=== PATIENT | female | born 1940 | race Caucasian/White ===

== ENCOUNTER 2018-11-09 22:33 | Observation (INO) | payer BC, MEDICARE ==
[~2018-11-09] VITALS: Ht 162.6 cm; Wt 52.0 kg
--- NOTE | 2018-11-09 22:46 | NUR ---
[facility] DIVERTED FROM [facility] WITH C/O SUDDEN ONSET STERAL CP DURING DINNER,+ N/V AND SOB THAT STARTED APPROX 2100 TODAY, DENIES CARDIAC H/X, EMT ADMINISTERRED 4 MG NITRO SL WITH RELIEF OF PT'S CP, PT ALSO RECIEVED 4 MG ZOFRAN RAILWAY HEAD TENDER. 12 LEAD EKG-SR, HR-79, B/P-161/71, 99% ON 2l N/C. MONITORS APPLIED, SIDERAILS UP X2, CALL LIGHT WITHIN REACH
[2018-11-09] MEDS ORDERED: PRED1TAB PO (22:56)
[2018-11-09] MEDS ORDERED: ASPI-515 PO (22:56)
[2018-11-09] MEDS ORDERED: FLUT9.9S NAS (22:56)
[2018-11-09] MEDS ORDERED: FLUT10.6 INH (22:56)
[2018-11-09] MEDS ORDERED: CALC-112 PO (22:56)
[2018-11-09 23:11] LABS: BASOPHILS # (AUTO) 0.01 x10^3/uL (0-0.1); BASOPHILS % (AUTO) 0 % (0-1); EOSINOPHILS # (AUTO) 0.55 x10^3/uL (0-0.4); EOSINOPHILS % (AUTO) 7 % (1-7); LYMPHOCYTES # (AUTO) 1.07 x10^3/uL (1-3.4); LYMPHOCYTES % (AUTO) 13 % (22-44); MD NO; MEAN CORPUSCULAR HEMOGLOBIN 30.8 pg (27.0-34.8); MEAN CORPUSCULAR HGB CONC 33.1 g/dL (32.4-35.8); MEAN PLATELET VOLUME 8.2 fL (7.4-10.4); MONOCYTES # (AUTO) 0.46 x10^3/uL (0.2-0.8); MONOCYTES % (AUTO) 5 % (2-9); NEUTROPHILS # (AUTO) 6.41 x10^3/uL (1.8-6.8); NEUTROPHILS % (AUTO) 75 % (42-75); PLATELET COUNT 312 x10^3/uL (130-400); RED BLOOD COUNT 4.25 x10^6/uL (3.82-5.3); RED CELL DISTRIBUTION WIDTH 14.3 % (9.6-15.2)
[2018-11-09 23:22] LABS: ALANINE AMINOTRANSFERASE 33 U/L (12-78); ALBUMIN 3.4 g/dL (3.4-5.0); ANION GAP 10 mmol/L (5-15); CALCIUM 8.9 mg/dL (8.5-10.1); CHLORIDE 109 mmol/L (98-107); CREATININE 0.64 mg/dL (0.55-1.02)
[2018-11-09 23:26] LABS: ALKALINE PHOSPHATASE 84 U/L (45-117); BILIRUBIN,TOTAL 0.5 mg/dL (0.2-1.0); TROPONIN I < 0.015 ng/mL (0.000-0.045)
--- NOTE | 2018-11-10 00:33 | NUR ---
PT RESTING ON GURNEY, DENIES PAIN, NAUSEA OR NEEDS AT THIS TIME, FAMILY AT BEDSIDE, MONITORS IN PLACE, CALL LIGHT WITHIN REACH. AWAITING CT RESULT
--- NOTE | 2018-11-10 01:13 | NUR ---
EMELY RN: DR OLSON HAS UPDATED PATIENT. VS STABLE. CALL LIGHT IN PLACE. WILL CONTINUE TO MONITOR WHILE PRIMARY RN IS ON BREAK.
[2018-11-10] MEDS ORDERED: SODIUM CHLORIDE 0.9% 1,000 ML IV SCH (02:31)
[2018-11-10 02:50] VITALS: BP 138/73
[2018-11-10] MEDS: HEPARIN 5,000 UNITS/ML, 1ML SQ SCH ×2 (02:54→11:00)
[2018-11-10] MEDS ORDERED: LATA7.5D EACHEYE (02:58)
[2018-11-10] MEDS ORDERED: ONDANSETRON 2MG/ML, 2ML IVPush PRN (03:00)
[2018-11-10 03:52] LABS: TROPONIN I < 0.015 ng/mL (0.000-0.045)
[2018-11-10 04:23] VITALS: BP 138/73
[2018-11-10] MEDS ORDERED: LATANOPROST OPHTH 0.005%, 2.5ML EACHEYE SCH (05:00)
[2018-11-10] MEDS ORDERED: OMNIPAQUE 350 MG/ML, 100ML BOTTLE ONE (05:36)
[2018-11-10] MEDS ORDERED: ASPIRIN 325 MG TABLET EC PO SCH (06:00)
[2018-11-10 08:02] VITALS: BP 135/80
[2018-11-10] MEDS ORDERED: REGADENOSON 0.4 MG/5 ML SYRINGE ONE (08:44)
[2018-11-10 09:12] LABS: TROPONIN I < 0.015 ng/mL (0.000-0.045)
[2018-11-10 13:04] VITALS: BP 128/77
== END 2018-11-10 15:20 | disposition home or self-care (01) ==
LOC: ED 23:24 → INTOOBSV 11-10 01:23 → EDIP 11-10 01:23 → 5SO 11-10 02:27 → DCLOUNGE 11-10 15:13
PROVIDERS: ADMIT Family Medicine; ATTEND Family Medicine
DX: R07.89 Other chest pain (principal); M35.3 Polymyalgia rheumatica; Z79.82 Long term (current) use of aspirin; Z79.899 Other long term (current) drug therapy; Z88.0 Allergy status to penicillin; Z88.8 Allergy status to other drugs, medicaments and biological substances; Z88.4 Allergy status to anesthetic agent
CPT/HCPCS: 36415; 71045; 71275; 78452; 80053; 83690; 83880; 84484; 85025; 85379; 93005; 93017; 93971; 96360; 96361; 96372; 99284; A9502; C9898; G0378; J1644; J2785; J7030; J7512; Q9967; 99285